=== PATIENT | female | born 1965 | race Caucasian/White ===

== ENCOUNTER 2016-10-12 13:26 | Emergency (ER) | payer MEDICAID | END 2016-10-12 14:14 | disposition home or self-care (01) | DX: S06.0X0A Concussion without loss of consciousness, initial encounter (principal); S00.33XA Contusion of nose, initial encounter; W22.8XXA Striking against or struck by other objects, initial encounter; Y92.018 Other place in single-family (private) house as the place of occurrence of the external cause; I11.0 Hypertensive heart disease with heart failure; I50.9 Heart failure, unspecified; I25.10 Atherosclerotic heart disease of native coronary artery without angina pectoris; M19.90 Unspecified osteoarthritis, unspecified site; F17.200 Nicotine dependence, unspecified, uncomplicated ==

== ENCOUNTER 2016-11-14 13:18 | Outpatient (CLI) | payer MEDICAID | END 2016-11-14 13:19 | disposition home or self-care (01) | DX: Z12.39 Encounter for other screening for malignant neoplasm of breast (principal) ==

== ENCOUNTER 2016-12-12 16:04 | Outpatient (CLI) | payer MEDICAID ==
--- NOTE | 2016-12-13 11:28 | XRAY Report ---
TWO-VIEW CHEST: 12/12/2016 CLINICAL INDICATION: Right-sided pain. COMPARISON: 12/22/2014 FINDINGS: Frontal and lateral views of the chest demonstrate a normal cardiac silhouette. The lungs are clear. No effusion or pneumothorax is present. IMPRESSION: NORMAL CHEST. JOB #: [id number] EXT JOB #:[id number]
--- NOTE | 2016-12-13 11:28 | XRAY Report ---
THREE-VIEW RIGHT ELBOW: 12/12/2016 CLINICAL INDICATION: Joint pain. FINDINGS: AP, lateral, oblique views of the right elbow demonstrate no evidence of fracture or dislo cation. The joint spaces are preserved. No effusion is present. IMPRESSION: NORMAL RIGHT ELBOW. 11:9:41 JOB #: [id number] EXT JOB #:[id number]
== END 2016-12-12 16:05 | disposition home or self-care (01) ==
LOC: DI.S 16:04
PROVIDERS: ATTEND Nurse Practitioner Family
DX: R07.81 Pleurodynia (principal)
CPT/HCPCS: 71020

== ENCOUNTER 2016-12-26 14:29 | Outpatient (CLI) | payer MEDICAID ==
[2016-12-26 18:25] LABS: CALCIUM 8.8 mg/dL (8.5-10.3); CREATININE 0.9 mg/dL (0.4-1.0); POTASSIUM 3.7 mmol/L (3.5-5.0)
== END 2016-12-26 14:30 | disposition home or self-care (01) ==
LOC: LAB.F 14:29
PROVIDERS: ATTEND Physician Assistant Medical
DX: I50.22 Chronic systolic (congestive) heart failure (principal)
CPT/HCPCS: 36415; 80048

== ENCOUNTER 2017-04-09 09:42 | Day surgery (SDC) | payer MEDICAID ==
[2017-04-09 10:06] LABS: HCG UR QUAL NEGATIVE
[2017-04-09] MEDS ORDERED: LACTATED RINGERS 1,000 ML IV ONE (10:24)
[2017-04-09] MEDS ORDERED: MIDAZOLAM 2 MG/2 ML VIAL IVP ONE (11:21)
[2017-04-09] MEDS ORDERED: fentaNYL 100 MCG/2 ML VIAL IVP ONE (11:21)
--- NOTE | 2017-04-09 11:47 | PROCEDURE REPORT ---
DATE OF PROCEDURE: 04/09/2017 00:00:00 PROCEDURES: EGD attempt. ENDOSCOPIST: Odell Stone MD. PRIMARY CARE: DANA Andino. INDICATION: Nausea, history of H pylori and bloating. The patient's previously scheduled upper endosc opy had been canceled. She now wanted to reschedule. She has not been seen in the office in some time . PREMEDICATIONS: Versed 2 mg. PROCEDURE IN DETAIL: After informed consent was obtained, the patient was placed in the supine positi on. She was given her first dose of sedation. She immediately became more tearful and wanted to cance l the procedure. The procedure was canceled. The endoscope was not inserted. FINDINGS: Canceled procedure after sedation secondary to patient preference. Given her history, she must have a return visit in the office before any procedures will be scheduled . I did look at her 2 previous abdominal flat plates, which show moderate to large stool burden on junior . On exam today, her abdomen is distended, but not tympanitic in the least consistent with stool/ab dominal adipose. It will be moreno to review all of these factors before scheduling any further procedu res. JOB #: [id number] [id number] JOB #:[id number]
[2017-04-09 11:50] VITALS: BP 108/61
== END 2017-04-09 09:43 | disposition home or self-care (01) ==
LOC: SDS 09:42
PROVIDERS: ATTEND Internal Medicine Gastroenterology
PROC: 0DJ08ZZ Inspection of Upper Intestinal Tract, Via Natural or Artificial Opening Endoscopic (ICD-10-PCS; principal; 2017-04-09 10:30)
DX: Z53.29 Procedure and treatment not carried out because of patient's decision for other reasons (principal); R14.0 Abdominal distension (gaseous)
CPT/HCPCS: 43235; 81025; J7120

== ENCOUNTER 2017-08-11 09:33 | Outpatient (CLI) | payer MEDICAID ==
--- NOTE | 2017-08-11 13:04 | XRAY Report ---
DATE OF SERVICE: 08/11/2017 UPPER GI WITH AIR: 08/11/2017 CLINICAL INDICATION: Nausea, bloating. FINDINGS: Single and double contrast upper GI was performed. The esophagus is normal in caliber. No esophageal stricturing, ulceration, or mass lesion is identified. A small amount of gastroesophageal reflux was visualized during the course of the study. The stomach demonstrates a normal fold pattern. No gastric ulceration or mass lesion is identified. The duodenal cap distends normally. The duodenal C loop appears unremarkable. Contrast passes freely into more distal small bowel loops. IMPRESSION: SMALL AMOUNT OF GASTROESOPHAGEAL REFLUX VISUALIZED, BUT NO ULCER OR MASS LESION IS IDENTIFIED. FLUOROSCOPY TIME: 2 MINUTES 15 SECONDS; 27 SPOT IMAGES OBTAINED. TD: 08/11/2017 14:04 BRADY
== END 2017-08-11 09:34 | disposition home or self-care (01) ==
LOC: DI 09:33
PROVIDERS: ATTEND Internal Medicine
DX: K21.9 Gastro-esophageal reflux disease without esophagitis (principal)
CPT/HCPCS: 74246

== ENCOUNTER 2017-10-01 08:00 | Outpatient (CLI) | payer MEDICAID ==
[2017-10-01 18:09] LABS: CALCIUM 8.9 mg/dL (8.5-10.3); CREATININE 1.1 mg/dL (0.4-1.0)
== END 2017-10-01 08:01 ==
LOC: LAB.F 08:00
DX: R60.9 Edema, unspecified (principal)
CPT/HCPCS: 36415; 80048

== ENCOUNTER 2017-12-11 11:59 | Emergency (ER) | payer MEDICAID ==
--- NOTE | 2017-12-11 13:04 | ED Physician Documentation ---
History of Present Illness - Stated complaint Stated Complaint: ABD PX - Chief complaint Chief Complaint: Abd Pain - History obtained from History obtained from: Patient - History of Present Illness Timing: Other (several years, worse over the past few months.) Pain level max: 1 Pain level now: 1 Improved by: nothing Worsened by: nothing - Additonal information Additional information: Patient is a 51-year-old female who presents to the emergency department complaining of increased abdominal swelling and bloating over the past few months. States that she has had ongoing stomach issues for "years". No cause found. States she had an endoscopy which was unable to be completed because she could not tolerate the procedure. She has another appointment with GI coming up in 2 weeks. 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 She has had some swelling in the legs, took Lasix and this improved. She states she has frequent nausea. Has been told that she has gallstones. Does not have vomiting. Intermittently has constipation and diarrhea. Review of Systems Ten Systems: 10 systems reviewed and negative Constitutional: denies: Fever, Chills Ears: denies: Ear pain Nose: denies: Rhinorrhea / runny nose, Congestion Throat: denies: Sore throat Cardiac: denies: Chest pain / pressure Respiratory: denies: Cough GI: denies: Hematemesis, Bloody / black stool : denies: Dysuria Skin: denies: Rash Musculoskeletal: denies: Neck pain, Back pain Neurologic: denies: Headache PD PAST MEDICAL HISTORY - Past Medical History Cardiovascular: Congestive heart failure, Coronary artery disease Respiratory: None Neuro: None Endocrine/Autoimmune: None GI: GERD 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 : None HEENT: None Psych: Depression, Anxiety Musculoskeletal: Osteoarthritis Derm: None - Past Surgical History Past Surgical History: Yes - Present Medications Home Medications: Ambulatory Orders Medication Instructions Recorded Confirmed Furosemide 25 mg PO DAILY 12/22/14 04/08/17 Lisinopril [Prinivil] 5 mg PO DAILY 12/22/14 04/08/17 Spironolactone [Aldactone] 25 mg PO DAILY 12/22/14 04/08/17 Metoprolol Succinate 25 mg PO BID 04/08/17 04/08/17 - Allergies Allergies/Adverse Reactions: Allergies Allergy/AdvReac Type Severity Reaction Status Date / Time No Known Drug Allergies Allergy Verified 09/13/15 19:28 - Social History Does the pt smoke?: Yes Smoking Status: Light tobacco smoker Does the pt drink ETOH?: Yes Does the pt have substance abuse?: No - Immunizations Immunizations are current?: No Immunizations: TDAP >10years/unknown - POLST Patient has POLST: No PD ED PE NORMAL - Vitals Vital signs reviewed: Yes - General General: Alert and oriented X 3, No acute distress - HEENT HEENT: Moist mucous membranes - Neck Neck: Supple, no meningeal sign - Cardiac Cardiac: RRR, Strong equal pulses - Respiratory Respiratory: No respiratory distress, Clear bilaterally - Abdomen Abdomen: Soft, Non tender, Other (mild distention. no peritoneal signs. ) - Derm Derm: Warm and dry - Extremities Extremities: Other (1+ BLE edema) - Neuro Neuro: Alert and oriented X 3 - Psych Psych: Normal mood, Normal affect Results - Vitals Vitals: Vital Signs - 24 hr 12/11/17 12/11/17 12:08 15:13 Temperature 36.2 C L Heart Rate 81 79 Respiratory 16 18 Rate Blood Pressure 141/87 H 130/92 H O2 Saturation 97 100 Oxygen O2 Source Room air - Labs Labs: Laboratory Tests 12/11/17 12/11/17 12/11/17 13:23 13:23 13:23 WBC 6.4 RBC 5.08 Hgb 14.8 Hct 44.3 MCV 87.3 MCH 29.2 MCHC 33.4 RDW 14.0 Plt Count 256 MPV 7.7 L Neut # 3.4 Lymph # 1.9 [place] # 0.7 Eos # 0.3 Baso # 0.0 Absolute Nucleated RBC 0.00 Nucleated RBC % 0.0 Sodium 138 Potassium 3.7 Chloride 103 Carbon Dioxide 29 Anion Gap 6.0 BUN 20 Creatinine 1.1 H Estimated GFR (MDRD) 52 L Glucose 81 Calcium 9.2 Total Bilirubin 0.6 AST 43 H ALT 37 Alkaline Phosphatase 83 B-Natriuretic Peptide 15 Total Protein 7.5 Albumin 3.4 Globulin 4.1 Albumin/Globulin Ratio 0.8 L Lipase 29 Urine Color Urine Clarity Urine pH Ur Specific [place] Urine Protein Urine Glucose (UA) Urine Ketones Urine Occult Blood Urine Nitrite Urine Bilirubin Urine Urobilinogen Ur Leukocyte Esterase Urine RBC Urine WBC Ur Squamous Epith Cells Urine Bacteria Ur Microscopic Review Urine Culture Comments 12/11/17 13:35 WBC RBC Hgb Hct MCV MCH MCHC RDW Plt Count MPV Neut # Lymph # [place] # Eos # Baso # Absolute Nucleated RBC Nucleated RBC % Sodium Potassium Chloride Carbon Dioxide Anion Gap BUN Creatinine Estimated GFR (MDRD) Glucose Calcium Total Bilirubin AST ALT Alkaline Phosphatase B-Natriuretic Peptide Total Protein Albumin Globulin Albumin/Globulin Ratio Lipase Urine Color YELLOW Urine Clarity CLEAR Urine pH 5.5 Ur Specific [place] >=1.030 H Urine Protein NEGATIVE Urine Glucose (UA) NEGATIVE Urine Ketones NEGATIVE Urine Occult Blood NEGATIVE Urine Nitrite NEGATIVE Urine Bilirubin NEGATIVE Urine Urobilinogen 0.2 (NORMAL) Ur Leukocyte Esterase SMALL H Urine RBC 0-5 Urine WBC 4-5 Ur Squamous Epith Cells FEW Squamous Urine Bacteria Few Ur Microscopic Review INDICATED Urine Culture Comments INDICATED - Rads (name of study) CT abd/pelvis Radiology: Prelim report reviewed, EMP read contemporaneously, See rad report ( Gallstones versus sludge without findings of acute cholecystitis. 2. No localizing or focal inflammatory process in the abdomen or pelvis. 3. Small 0.7 cm low-density liver lesion is too small to characterize but as an isolated finding of doubtful acute significance ) PD MEDICAL DECISION MAKING - ED course Complexity details: reviewed old records (prior 2015), reviewed results, re- evaluated patient, considered differential, d/w patient ED course: Patient is a 51-year-old female who presents to the emergency department with abdominal bloating for the past several years, worse over the past few months. Is scheduled to see GI again. Has been evaluated by GI several times. Also has been evaluated by cardiology. Does not appear significantly fluid overloaded today. BNP is normal. No acute laboratory issues are she is on CT scan to explain her symptoms. Will have her follow-up with her doctor for further care. She does have a gallstone which is chronic and does not appear infected at this time. No abdominal tenderness to suggest cholecystitis. Patient counseled regarding signs and symptoms for which I believe and urgent re -evaluation would be necessary. Patient with good understanding of and agreement to plan and is comfortable going home at this time This document was made in part using voice recognition software. While efforts are made to proofread this document, sound alike and grammatical errors may occur. Departure - Departure Disposition: 01 Home, Self Care Clinical Impression: Abdominal distention Gallstone Qualifiers: Cholecystitis presence: without cholecystitis Biliary obstruction: without biliary obstruction Qualified Code(s): K80.20 - Calculus of gallbladder without cholecystitis without obstruction Condition: Good Instructions: ED Gas Bloating Follow-Up: Myra Carranza ARNP [Primary Care Provider] - Within 1 week Comments: Your tests are normal today. There are no acute findings on your labs or CT scan today. Follow up with cardiology and gastroenterology as scheduled. Return if you worsen. Discharge Date/Time: 12/11/17 15:22
[2017-12-11 13:39] LABS: BASOPHILS % (AUTO) 0.5 %; EOSINOPHILS # (AUTO) 0.3 10^3/uL (0.0-0.7); EOSINOPHILS % (AUTO) 4.5 %; HGB - HEMOGLOBIN 14.8 g/dL (12.0-16.0); LYMPHOCYTES # (AUTO) 1.9 10^3/uL (1.5-3.5); LYMPHOCYTES % (AUTO) 30.7 %; MEAN CORPUSCULAR HEMOGLOBIN 29.2 pg (27.0-31.0); MEAN CORPUSCULAR HGB CONC 33.4 g/dL (32.0-36.0); MEAN CORPUSCULAR VOLUME 87.3 fL (81.0-99.0); MEAN PLATELET VOLUME 7.7 fL (7.9-10.8); MONOCYTES # (AUTO) 0.7 10^3/uL (0.0-1.0); MONOCYTES % (AUTO) 11.6 %; NEUTROPHILS # (AUTO) 3.4 10^3/uL (1.5-6.6); NEUTROPHILS % (AUTO) 52.7 %; PLT - PLATELET COUNT 256 10^3/uL (130-450); RED BLOOD COUNT 5.08 10^6/uL (4.20-5.40); WHITE BLOOD COUNT 6.4 x10^3/uL (4.8-10.8)
[2017-12-11 13:40] LABS: BILIRUBIN,URINE NEGATIVE (NEGATIVE); GLUCOSE, URINE (UA) NEGATIVE (NEGATIVE); KETONES,URINE (UA) NEGATIVE (NEGATIVE); LEUKOCYTE ESTERASE, URINE SMALL (NEGATIVE); NITRITE,URINE NEGATIVE (NEGATIVE); OCCULT BLOOD,URINE NEGATIVE (NEGATIVE); PH,URINE 5.5 PH (5.0-7.5); PROTEIN,URINE NEGATIVE (NEGATIVE); UROBILINOGEN,URINE 0.2 (NORMAL) E.U./dL (NORMAL)
[2017-12-11 13:42] LABS: CLARITY,URINE CLEAR (CLEAR)
[2017-12-11 13:48] LABS: BACTERIA,URINE Few /HPF (None Seen); RBC,URINE 0-5 /HPF (0-5); SQUAMOUS EPITHELIAL CELL,UR FEW Squamous (<= Few)
[2017-12-11] MEDS ORDERED: IOPAMIDOL-300 50 ML VIAL ONE (13:52)
[2017-12-11 13:54] LABS: ALBUMIN 3.4 g/dL (3.2-5.5); ALBUMIN/GLOBULIN RATIO 0.8 (1.0-2.2); BILIRUBIN,TOTAL 0.6 mg/dL (0.2-1.0); CALCIUM 9.2 mg/dL (8.5-10.3); CREATININE 1.1 mg/dL (0.4-1.0); TOTAL PROTEIN 7.5 g/dL (6.7-8.2)
[2017-12-11] MEDS ORDERED: IOPAMIDOL-300 100 ML VIAL ONE (14:35)
[2017-12-11] MEDS ORDERED: IOPAMIDOL-300 100 ML VIAL IVP ONE (15:02)
[2017-12-11] MEDS ORDERED: IOPAMIDOL-300 50 ML VIAL PO ONE (15:02)
[2017-12-11 15:14] VITALS: BP 130/92
--- NOTE | 2017-12-11 15:20 | CT Report ---
EXAM: CT ABDOMEN AND PELVIS EXAM DATE: 12/11/2017 03:02 PM. CLINICAL HISTORY: Diffuse abd discomfort and swelling. COMPARISONS: None. TECHNIQUE: Routine helical CT imaging was performed through the abdomen and pelvis. IV contrast: ISOV UE 300 100mL. Enteric contrast: Yes. Reconstructions: Coronal and sagittal. In accordance with CT protocol optimization, one or more of the following dose reduction techniques w ere utilized for this exam: automated exposure control, adjustment of mA and/or KV based on patient s ize, or use of iterative reconstructive technique. FINDINGS: Lung Bases: Unremarkable. Liver: The liver size is normal. There is a 0.7 cm low-density lesion in the dome of the left lobe of the liver which is too small to characterize. Gallbladder/Bile Ducts: There is a 1.7 cm gallstone or sludge ball within the gallbladder. No CT evid ence of acute cholecystitis. Spleen: Normal. Pancreas: Normal. Adrenal Glands: Normal. Kidneys: Normal. No masses or hydronephrosis. Peritoneal Cavity/Bowel: The stomach and the small bowel are opacified with contrast. No dilated arsalan l or evidence of small bowel obstruction. There is scattered stool in the colon. No focal colonic wal l thickening. No abnormal fluid or gas collection. The appendix is well visualized and normal. Pelvic Organs: Uterus is anteverted. Urinary bladder appears unremarkable. Vasculature: No aneurysms or other significant abnormality. Bones: No significant abnormality. Other: None. IMPRESSION: 1. Gallstones versus sludge without findings of acute cholecystitis. 2. No localizing or focal inflammatory process in the abdomen or pelvis. 3. Small 0.7 cm low-density liver lesion is too small to characterize but as an isolated finding of d oubtful acute significance [facility] Referring Provider Line: [phone] SITE ID: [id number]
== END 2017-12-11 15:22 | disposition home or self-care (01) ==
LOC: ED 11:59
DX: R14.0 Abdominal distension (gaseous) (principal); K80.20 Calculus of gallbladder without cholecystitis without obstruction; I50.9 Heart failure, unspecified; I25.10 Atherosclerotic heart disease of native coronary artery without angina pectoris; K21.9 Gastro-esophageal reflux disease without esophagitis; M19.90 Unspecified osteoarthritis, unspecified site; F17.200 Nicotine dependence, unspecified, uncomplicated
CPT/HCPCS: 36415; 74177; 80053; 81001; 83690; 83880; 85025; 87086; 99283; Q9967; 81003

== ENCOUNTER 2018-10-13 08:30 | Outpatient (CLI) | payer MEDICAID ==
[2018-10-13 10:47] LABS: BASOPHILS % (AUTO) 0.7 %; EOSINOPHILS # (AUTO) 0.1 10^3/uL (0.0-0.7); EOSINOPHILS % (AUTO) 2.7 %; HGB - HEMOGLOBIN 14.3 g/dL (12.0-16.0); LYMPHOCYTES # (AUTO) 1.5 10^3/uL (1.5-3.5); LYMPHOCYTES % (AUTO) 28.9 %; MEAN CORPUSCULAR HEMOGLOBIN 29.1 pg (27.0-31.0); MEAN CORPUSCULAR HGB CONC 33.3 g/dL (32.0-36.0); MEAN CORPUSCULAR VOLUME 87.5 fL (81.0-99.0); MEAN PLATELET VOLUME 8.1 fL (7.9-10.8); MONOCYTES # (AUTO) 0.5 10^3/uL (0.0-1.0); MONOCYTES % (AUTO) 9.2 %; NEUTROPHILS % (AUTO) 58.5 %; PLT - PLATELET COUNT 248 10^3/uL (130-450); RED BLOOD COUNT 4.93 10^6/uL (4.20-5.40); RED CELL DISTRIBUTION WIDTH 13.7 % (12.0-15.0); WHITE BLOOD COUNT 5.1 x10^3/uL (4.8-10.8)
[2018-10-13 11:12] LABS: ALBUMIN 3.5 g/dL (3.2-5.5); ALBUMIN/GLOBULIN RATIO 0.9 (1.0-2.2); ALKALINE PHOSPHATASE 77 IU/L (42-121); ALT ALANINE AMINOTRANSFERASE 27 IU/L (10-60); AST ASPARTATE AMINOTRANSFERASE 32 IU/L (10-42); BILIRUBIN,TOTAL 0.7 mg/dL (0.2-1.0); BUN - BLOOD UREA NITROGEN 19 mg/dL (6-20); CALCIUM 8.7 mg/dL (8.5-10.3); CARBON DIOXIDE - CO2 24 mmol/L (21-32); CHLORIDE 104 mmol/L (101-111); CHOLESTEROL 232 mg/dL; CREATININE 0.8 mg/dL (0.4-1.0); GFR - MDRD 75 (>89); GLUCOSE 104 mg/dL (70-100); HDL CHOLESTEROL 77 mg/dL; LDL CHOLESTEROL,CALCULATED 138 mg/dL; LDL/HDL RATIO 1.8 (<4.4); SODIUM 136 mmol/L (135-145); TOTAL PROTEIN 7.4 g/dL (6.7-8.2); VLDL CHOLESTEROL 17 mg/dL
== END 2018-10-13 08:31 | disposition home or self-care (01) ==
LOC: LAB.F 08:30
PROVIDERS: ATTEND Nurse Practitioner Family
DX: I10 Essential (primary) hypertension (principal); Z13.220 Encounter for screening for lipoid disorders
CPT/HCPCS: 36415; 80053; 80061; 83721; 84443; 85025

== ENCOUNTER 2018-10-22 01:51 | Emergency (ER) | payer MEDICAID ==
[2018-10-22 02:12] VITALS: BP 127/90
[2018-10-22] MEDS ORDERED: ASPIRIN CHEW 81 MG TABLET PO STA (02:12)
--- NOTE | 2018-10-22 02:20 | ED Physician Documentation ---
History of Present Illness - Stated complaint Stated Complaint: CP - Chief complaint Chief Complaint: General - History obtained from History obtained from: Patient - History of Present Illness Timing: Yesterday Pain level max: 6 Pain level now: 4 - Additonal information Additional information: 52-year-old female with right-sided chest pain, described as sharp, worse with movement, palpation and deep breathing. Started after she fell and landed on the arm of a chair in the right upper chest wall, this is where the pain is. Has not taken anything for it. 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 : None HEENT: None Psych: None Musculoskeletal: None Derm: None - Past Surgical History Past Surgical History: Yes /DESTATICIZER FEEDER: LEEP (Cervical surgery) - Present Medications Home Medications: Ambulatory Orders Medication Instructions Recorded Confirmed Furosemide 25 mg PO DAILY 12/22/14 01/20/18 Lisinopril [Prinivil] 5 mg PO DAILY 12/22/14 01/20/18 Spironolactone [Aldactone] 25 mg PO DAILY 12/22/14 01/20/18 Metoprolol Succinate 25 mg PO BID 04/08/17 01/20/18 - Allergies Allergies/Adverse Reactions: Allergies Allergy/AdvReac Type Severity Reaction Status Date / Time No Known Drug Allergies Allergy Verified 10/22/18 02:01 - Social History Does the pt smoke?: Yes Smoking Status: Current every day smoker Does the pt drink ETOH?: Yes Does the pt have substance abuse?: No - Immunizations Immunizations are current?: No Immunizations: TDAP >10years/unknown - POLST Patient has POLST: No PD ED PE NORMAL - Vitals Vital signs reviewed: Yes - General General: Alert and oriented X 3, No acute distress, Well developed/nourished - HEENT HEENT: PERRL, Moist mucous membranes - Neck Neck: Supple, no meningeal sign - Cardiac Cardiac: RRR, No murmur, Strong equal pulses - Respiratory Respiratory: No respiratory distress, Clear bilaterally - Abdomen Abdomen: Soft, Non tender, Non distended - Derm Derm: Warm and dry - Extremities Extremities: No edema, No calf tenderness / cord - Neuro Neuro: Alert and oriented X 3 - Psych Psych: Normal mood, Normal affect - Free text exam Free text exam: Tender to palpation over the right upper chest wall. Reproduces her pain. No crepitus. No ecchymosis. Results - Vitals Vitals: Vital Signs - 24 hr 10/22/18 10/22/18 01:55 02:11 Temperature 36.7 C Heart Rate 98 93 Respiratory 19 20 Rate Blood Pressure 145/65 H 127/90 H O2 Saturation 100 98 Oxygen O2 Source Room air - EKG (time done) 0201 Rate: Rate (enter#) (94) Rhythm: NSR, Other (52-year-old female with right-sided chest pain, described as sharp, worse with movement, palpation and deep breathing. Started after she fell and landed on the arm of a chair in the right upper chest wall, this is where the pain is. Has not taken anything for it. Nothing makes it better) [place]: Normal Intervals: Normal NE QRS: Normal Ischemia: Non specific changes - Labs Labs: Laboratory Tests 10/22/18 10/22/18 10/22/18 02:20 02:20 02:20 WBC 6.4 RBC 4.61 Hgb 13.4 Hct 40.1 MCV 86.9 MCH 29.0 MCHC 33.4 RDW 13.8 Plt Count 241 MPV 7.6 L Neut # (Auto) 3.5 Lymph # (Auto) 1.9 [place] # (Auto) 0.7 Eos # (Auto) 0.2 Baso # (Auto) 0.0 Absolute Nucleated RBC 0.00 Nucleated RBC % 0.0 Sodium 136 Potassium 3.9 Chloride 105 Carbon Dioxide 25 Anion Gap 6.0 BUN 24 H Creatinine 0.9 Estimated GFR (MDRD) 65 L Glucose 131 H Calcium 8.6 Total Bilirubin 0.5 AST 32 ALT 28 Alkaline Phosphatase 85 Troponin I < 0.04 Total Protein 7.1 Albumin 3.3 Globulin 3.8 Albumin/Globulin Ratio 0.9 L Lipase 34 - Rads (name of study) Chest x-ray Radiology: Prelim report reviewed, EMP read contemporaneously, See rad report (No acute abnormality) PD MEDICAL DECISION MAKING - ED course Complexity details: reviewed results, re-evaluated patient, considered differential (No ST elevation MA, no aortic dissection, no PE, no tension pneumothorax, no aortic aneurysm), d/w patient ED course: 52-year-old female presents to the emergency department with chest wall pain after a fall and landing on the couch. No pneumothorax or hemothorax. Negative cardiac enzymes. Nonischemic EKG. Negative chest x-ray. Will continue Motrin and Tylenol as needed for symptoms at home. Patient counseled regarding signs and symptoms for which I believe and urgent re-evaluation would be necessary. Patient with good understanding of and agreement to plan and is comfortable going home at this time This document was made in part using voice recognition software. While efforts are made to proofread this document, sound alike and grammatical errors may occur. Departure - Departure Disposition: 01 Home, Self Care Clinical Impression: Contusion, chest wall Qualifiers: Encounter type: initial encounter Laterality: right Qualified Code(s): S20.211A - Contusion of right front wall of thorax, initial encounter Condition: Good Instructions: ED Contusion Chest Wall Follow-Up: Myra Carranza ARNP [Primary Care Provider] - Within 3 Days Comments: You can use Motrin or Tylenol as needed for pain at home. Return if you worsen. Follow-up with your doctor for further care.
[2018-10-22 02:33] LABS: BASOPHILS % (AUTO) 0.6 %; EOSINOPHILS # (AUTO) 0.2 10^3/uL (0.0-0.7); EOSINOPHILS % (AUTO) 3.7 %; HGB - HEMOGLOBIN 13.4 g/dL (12.0-16.0); LYMPHOCYTES # (AUTO) 1.9 10^3/uL (1.5-3.5); LYMPHOCYTES % (AUTO) 29.9 %; MEAN CORPUSCULAR HGB CONC 33.4 g/dL (32.0-36.0); MEAN CORPUSCULAR VOLUME 86.9 fL (81.0-99.0); MEAN PLATELET VOLUME 7.6 fL (7.9-10.8); MONOCYTES # (AUTO) 0.7 10^3/uL (0.0-1.0); MONOCYTES % (AUTO) 10.6 %; NEUTROPHILS # (AUTO) 3.5 10^3/uL (1.5-6.6); NEUTROPHILS % (AUTO) 55.2 %; PLT - PLATELET COUNT 241 10^3/uL (130-450); RED BLOOD COUNT 4.61 10^6/uL (4.20-5.40); RED CELL DISTRIBUTION WIDTH 13.8 % (12.0-15.0); WHITE BLOOD COUNT 6.4 x10^3/uL (4.8-10.8)
--- NOTE | 2018-10-22 02:36 | XRAY Report ---
Reason: Chest Pain Procedure Date: 10/22/2018 Accession Number: [id number] / [id number] Procedure: XR - Chest 1 View X-Ray CPT Code: 25039 FULL RESULT: EXAM: CHEST RADIOGRAPHY EXAM DATE: 10/22/2018 02:22 AM. CLINICAL HISTORY: Chest Pain. COMPARISON: CHEST 2 VIEW PA/LAT 12/12/2016 4:14 PM. TECHNIQUE: 1 view. FINDINGS: Lungs/Pleura: No focal opacities evident. No pleural effusion. No pneumothorax. Mediastinum: Within exam limitations, the cardiomediastinal contour is normal. Other: None. IMPRESSION: Stable negative single view chest. [facility]
[2018-10-22 02:43] LABS: ALBUMIN 3.3 g/dL (3.2-5.5); ALBUMIN/GLOBULIN RATIO 0.9 (1.0-2.2); BILIRUBIN,TOTAL 0.5 mg/dL (0.2-1.0); CALCIUM 8.6 mg/dL (8.5-10.3); CREATININE 0.9 mg/dL (0.4-1.0); TOTAL PROTEIN 7.1 g/dL (6.7-8.2)
== END 2018-10-22 03:02 | disposition home or self-care (01) ==
LOC: ED 01:51
DX: S20.211A Contusion of right front wall of thorax, initial encounter (principal); W18.30XA Fall on same level, unspecified, initial encounter; W22.03XA Walked into furniture, initial encounter; F17.200 Nicotine dependence, unspecified, uncomplicated
CPT/HCPCS: 36415; 71045; 80053; 83690; 84484; 85025; 93005; 99283; 99284; A9270

== ENCOUNTER 2018-12-30 10:18 | Outpatient (CLI) | payer MEDICAID | END 2018-12-30 10:19 | disposition home or self-care (01) | LOC: LAB.F 10:18 | PROVIDERS: ATTEND Internal Medicine | DX: R11.0 Nausea (principal) | CPT/HCPCS: 36415; 81599; 82784; 83516 ==

== ENCOUNTER 2019-04-01 14:59 | Outpatient (CLI) | payer MEDICAID | END 2019-04-01 15:00 | disposition home or self-care (01) | LOC: LAB.S 14:59 | PROVIDERS: ATTEND Physician Assistant Medical | DX: I50.22 Chronic systolic (congestive) heart failure (principal) | CPT/HCPCS: 36415; 80048 ==

== ENCOUNTER 2019-07-25 12:12 | Emergency (ER) | payer MEDICAID ==
[2019-07-25 12:53] VITALS: BP 146/85
--- NOTE | 2019-07-25 13:09 | ED Physician Documentation ---
PD HPI CHEST PAIN - Stated complaint Stated Complaint: SOA/BACK PX - Chief complaint Chief Complaint: Cardiac - History obtained from History obtained from: Patient - History of Present Illness Timing - onset: Other (5 days ago she fell out of a truck. She did not hit her back but she kind of bent over too far in the fall. Starting yesterday she is had a back pain, its near the right side of the posterior bra line and its worse if she bends over or lifts up her head. She is not short of breath, but a friend of hers told her that she looked short of breath. She denies pedal edema or calf pain. She has history of CHF for reasons that are not completely clear to me. She denies any history of coronary disease. 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 : None HEENT: None Psych: Anxiety Musculoskeletal: None Derm: None - Past Surgical History Past Surgical History: 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: LEEP (Cervical surgery) - Present Medications Home Medications: Ambulatory Orders Medication Instructions Recorded Confirmed Furosemide 25 mg PO DAILY 12/22/14 01/20/18 Lisinopril [Prinivil] 5 mg PO DAILY 12/22/14 01/20/18 Spironolactone [Aldactone] 25 mg PO DAILY 12/22/14 01/20/18 Metoprolol Succinate 25 mg PO BID 04/08/17 01/20/18 - Allergies Allergies/Adverse Reactions: Allergies Allergy/AdvReac Type Severity Reaction Status Date / Time No Known Drug Allergies Allergy Verified 07/25/19 12:18 - Social History Does the pt smoke?: Yes Smoking Status: Current every day smoker Does the pt drink ETOH?: Yes Does the pt have substance abuse?: No - Immunizations Immunizations are current?: No Immunizations: TDAP >10years/unknown - POLST Patient has POLST: No PD ED PE NORMAL - Vitals Vital signs reviewed: Yes - General General: Alert and oriented X 3, No acute distress - HEENT HEENT: PERRL, EOMI - Neck Neck: Supple, no meningeal sign, No bony TTP - Cardiac Cardiac: RRR, No murmur - Respiratory Respiratory: No respiratory distress, Clear bilaterally - Abdomen Abdomen: Non tender - Back Back: No CVA TTP, No spinal TTP - Extremities Extremities: No edema, No calf tenderness / cord - Neuro Neuro: Alert and oriented X 3, Normal speech Results - Vitals Vitals: Vital Signs - 24 hr 07/25/19 07/25/19 12:18 12:49 Temperature 36.8 C Heart Rate 92 Respiratory 14 Rate Blood Pressure 147/90 H Blood Pressure 146/85 H [Right] O2 Saturation 94 Oxygen O2 Source Room air - EKG (time done) 1224 Rate: Rate (enter#) (93) Rhythm: NSR (with pvc), LAE [place]: Normal Intervals: Normal [place] Ischemia: Non specific changes Computer interpretation: Agree with computer 1326 Rate: Rate (enter#) (87) Rhythm: NSR [place]: Normal Intervals: Normal [place], Prolonged QT Ischemia: Non specific changes Computer interpretation: Agree with computer - Labs Labs: Laboratory Tests 07/25/19 07/25/19 07/25/19 13:10 13:10 13:10 WBC 6.6 RBC 4.91 Hgb 14.3 Hct 43.9 MCV 89.4 MCH 29.1 MCHC 32.6 RDW 13.4 Plt Count 234 MPV 9.5 Neut # (Auto) 3.8 Lymph # (Auto) 2.0 [place] # (Auto) 0.7 Eos # (Auto) 0.2 Baso # (Auto) 0.0 Absolute Nucleated RBC 0.00 Nucleated RBC % 0.0 D-Dimer Sodium 139 Potassium 3.8 Chloride 103 Carbon Dioxide 26 Anion Gap 10.0 BUN 24 H Creatinine 1.1 H Estimated GFR (MDRD) 52 L Glucose 137 H Calcium 9.2 Total Bilirubin 0.5 AST 31 ALT 26 Alkaline Phosphatase 74 Troponin I High Sens 7.5 Total Protein 7.3 Albumin 3.5 Globulin 3.8 Albumin/Globulin Ratio 0.9 L Lipase 42 07/25/19 13:10 WBC RBC Hgb Hct MCV MCH MCHC RDW Plt Count MPV Neut # (Auto) Lymph # (Auto) [place] # (Auto) Eos # (Auto) Baso # (Auto) Absolute Nucleated RBC Nucleated RBC % D-Dimer < 200.0 L Sodium Potassium Chloride Carbon Dioxide Anion Gap BUN Creatinine Estimated GFR (MDRD) Glucose Calcium Total Bilirubin AST ALT Alkaline Phosphatase Troponin I High Sens Total Protein Albumin Globulin Albumin/Globulin Ratio Lipase PD MEDICAL DECISION MAKING - ED course ED course: 53-year-old woman with right upper back pain after falling off a truck, the pattern seems muscular. A search for more serious etiology such as anginal equivalent, PE was negative. She does have a history of gallstones and this could be causative but she has no transaminitis or evidence of obstruction and no right upper quadrant tenderness. She declined medications. Departure - Departure Disposition: 01 Home, Self Care Clinical Impression: Back strain Qualifiers: Encounter type: initial encounter Qualified Code(s): S39.012A - Strain of muscle, fascia and tendon of lower back, initial encounter Back pain Qualifiers: Back pain location: thoracic back pain Chronicity: acute Back pain laterality: right Qualified Code(s): M54.6 - Pain in thoracic spine Condition: Good Record reviewed to determine appropriate education?: Yes Instructions: ED Chest Pain NonCardiac, ED Spasm Back No Trauma Follow-Up: Nicola Tate MD [Provider Admit Priv/Credential] - Comments: Tylenol as needed for pain, return for new or worsening symptoms. As discussed I do not think this is related to your gallstones, but it is not unreasonable to follow-up with a general surgeon for evaluation and a number is on the form to make an appointment.
[2019-07-25 13:22] LABS: BASOPHILS % (AUTO) 0.5 %; EOSINOPHILS # (AUTO) 0.2 10^3/uL (0.0-0.7); EOSINOPHILS % (AUTO) 2.9 %; HGB - HEMOGLOBIN 14.3 g/dL (12.0-16.0); LYMPHOCYTES % (AUTO) 29.5 %; MEAN CORPUSCULAR HEMOGLOBIN 29.1 pg (27.0-31.0); MEAN CORPUSCULAR HGB CONC 32.6 g/dL (32.0-36.0); MEAN CORPUSCULAR VOLUME 89.4 fL (81.0-99.0); MEAN PLATELET VOLUME 9.5 fL (7.9-10.8); MONOCYTES # (AUTO) 0.7 10^3/uL (0.0-1.0); MONOCYTES % (AUTO) 10.2 %; NEUTROPHILS # (AUTO) 3.8 10^3/uL (1.5-6.6); NEUTROPHILS % (AUTO) 56.6 %; PLT - PLATELET COUNT 234 10^3/uL (130-450); RED BLOOD COUNT 4.91 10^6/uL (4.20-5.40); RED CELL DISTRIBUTION WIDTH 13.4 % (12.0-15.0); WHITE BLOOD COUNT 6.6 x10^3/uL (4.8-10.8)
[2019-07-25 13:33] LABS: ALBUMIN 3.5 g/dL (3.2-5.5); ALBUMIN/GLOBULIN RATIO 0.9 (1.0-2.2); BILIRUBIN,TOTAL 0.5 mg/dL (0.2-1.0); CALCIUM 9.2 mg/dL (8.5-10.3); CREATININE 1.1 mg/dL (0.4-1.0); TOTAL PROTEIN 7.3 g/dL (6.7-8.2)
--- NOTE | 2019-07-25 13:59 | XRAY Report ---
Reason: right upper back pain Procedure Date: 07/25/2019 Accession Number: [id number] / [id number] Procedure: XR - Chest 2 View X-Ray CPT Code: 43051 Final Report FULL RESULT: EXAM: CHEST RADIOGRAPHY EXAM DATE: 07/25/2019 01:43 PM. CLINICAL HISTORY: Right upper back pain. COMPARISON: CHEST 1 VIEW 10/22/2018 2:10 AM. TECHNIQUE: 2 views. FINDINGS: Lungs/Pleura: No focal opacities evident. No pleural effusion. No pneumothorax. Normal volumes. Mediastinum: Heart and mediastinal contours are unremarkable. Other: No acute skeletal abnormalities are evident. IMPRESSION: No acute cardiopulmonary abnormality. RADIA
== END 2019-07-25 14:19 | disposition home or self-care (01) ==
LOC: ED 12:12
DX: S29.012A Strain of muscle and tendon of back wall of thorax, initial encounter (principal); W17.89XA Other fall from one level to another, initial encounter; I49.3 Ventricular premature depolarization; I45.81 Long QT syndrome; I50.9 Heart failure, unspecified; F17.200 Nicotine dependence, unspecified, uncomplicated
CPT/HCPCS: 36415; 71046; 80053; 83690; 84484; 85025; 85379; 93005; 99282; 99284

== ENCOUNTER 2020-05-22 19:41 | Emergency (ER) | payer MEDICAID ==
[2020-05-22] MEDS ORDERED: ACETAMINOPHEN 325 MG TABLET PO STA (20:49)
--- NOTE | 2020-05-22 20:59 | ED Physician Documentation ---
History of Present Illness - Stated complaint Stated Complaint: RT FLANK PX - Chief complaint Chief Complaint: General - History obtained from History obtained from: Patient - History of Present Illness Timing: Yesterday Pain level max: 6 Pain level now: 5 - Additonal information Additional information: 54-year-old female states she was bending over a headboard making a bed, since that time has had right anterior rib pain. This started yesterday. Worse with movement and palpation, better with rest. Has not taken anything for the pain. No difficulty breathing. No nausea or vomiting. No abdominal pain. No diarrhea. No constipation. 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) - Present Medications Home Medications: Ambulatory Orders Medication Instructions Recorded Confirmed Furosemide 25 mg PO DAILY 12/22/14 01/20/18 Lisinopril [Prinivil] 5 mg PO DAILY 12/22/14 01/20/18 Spironolactone [Aldactone] 25 mg PO DAILY 12/22/14 01/20/18 Metoprolol Succinate 25 mg PO BID 04/08/17 01/20/18 - Allergies Allergies/Adverse Reactions: Allergies Allergy/AdvReac Type Severity Reaction Status Date / Time No Known Drug Allergies Allergy Verified 05/22/20 19:43 - Social History Does the pt smoke?: Yes Smoking Status: Current every day smoker Does the pt drink ETOH?: Yes Does the pt have substance abuse?: No - Immunizations Immunizations are current?: No Immunizations: TDAP >10years/unknown - POLST Patient has POLST: No PD ED PE NORMAL - Vitals Vital signs reviewed: Yes - General General: Alert and oriented X 3, No acute distress - HEENT HEENT: Moist mucous membranes - Neck Neck: Supple, no meningeal sign - Cardiac Cardiac: RRR - Respiratory Respiratory: No respiratory distress, Clear bilaterally - Abdomen Abdomen: Soft, Non tender, Non distended, Other (No tenderness over the liver or gallbladder. She is tender to palpation right anterior ribs, approximately 10 through 12. No crepitus. No ecchymosis.) - Derm Derm: Warm and dry - Neuro Neuro: Alert and oriented X 3 - Psych Psych: Normal mood, Normal affect Results - Vitals Vitals: Vital Signs - 24 hr 05/22/20 05/22/20 05/22/20 19:44 19:54 21:41 Temperature 37.0 C 37 C 37 C Heart Rate 98 98 89 Respiratory 16 16 16 Rate Blood Pressure 136/84 H 136/84 H 132/78 H O2 Saturation 98 98 100 Oxygen O2 Source Room air - Rads (name of study) Right rib x-ray Radiology: Prelim report reviewed, EMP read contemporaneously, See rad report PD MEDICAL DECISION MAKING - ED course Complexity details: reviewed results, re-evaluated patient, considered differential, d/w patient ED course: No acute findings on x-ray. No pneumothorax or hemothorax. Pain well controlled with Tylenol. We will continue supportive care and have her follow- up with her doctor. Patient counseled regarding signs and symptoms for which I believe and urgent re-evaluation would be necessary. Patient with good understanding of and agreement to plan and is comfortable going home at this time This document was made in part using voice recognition software. While efforts are made to proofread this document, sound alike and grammatical errors may occur. Departure - Departure Disposition: 01 Home, Self Care Clinical Impression: Contusion of rib on right side Qualifiers: Encounter type: initial encounter Qualified Code(s): S20.211A - Contusion of right front wall of thorax, initial encounter Condition: Good Instructions: ED Contusion Chest Wall, ED Contusion Rib Follow-Up: your,doctor in 1 week [Other] Comments: Your x-rays do not show any acute abnormality today. Follow-up with your doctor in 1 week for repeat evaluation. You can use Motrin or Tylenol as needed for pain. Discharge Date/Time: 05/22/20 21:42
--- NOTE | 2020-05-22 21:32 | XRAY Report ---
PROCEDURE: Ribs w/PA Chest RT INDICATIONS: R anterior 10-12 rib pain TECHNIQUE: 2 views of the right ribs were acquired, along with a single view chest. COMPARISON: None FINDINGS: Surgical changes and devices: None. Bones and chest wall: No fractures or dislocations. No suspicious bony lesions. Overlying soft tis sues appear unremarkable. Lungs and pleura: No pleural effusions or pneumothorax. Lungs appear clear. Mediastinum: Mediastinal contours appear normal. Heart size is normal. IMPRESSION: No visible rib fractures or radiographic evidence of underlying chest trauma. Reviewed by: Daisy Lopez MD on 05/22/2020 9:30 PM PDT Approved by: Daisy Lopez MD on 05/22/2020 9:30 PM PDT Station ID: [id number]
[2020-05-22 21:42] VITALS: BP 132/78
== END 2020-05-22 21:42 | disposition home or self-care (01) ==
LOC: ED 19:41
DX: S20.211A Contusion of right front wall of thorax, initial encounter (principal); X58.XXXA Exposure to other specified factors, initial encounter; Y93.E9 Activity, other interior property and clothing maintenance; I50.9 Heart failure, unspecified; F17.200 Nicotine dependence, unspecified, uncomplicated
CPT/HCPCS: 71101; 99282; 99283; A9270

== ENCOUNTER 2020-07-17 16:39 | Outpatient (CLI) | payer MEDICAID | END 2020-07-17 16:40 | disposition home or self-care (01) | LOC: COV 16:39 | PROVIDERS: ATTEND Family Medicine | DX: R05 Cough (principal); M79.10 Myalgia, unspecified site; R53.83 Other fatigue; R07.0 Pain in throat; R09.81 Nasal congestion; Z20.828 Contact with and (suspected) exposure to other viral communicable diseases ==

== ENCOUNTER 2020-07-21 16:23 | Emergency (ER) | payer MEDICAID ==
[2020-07-21 16:31] VITALS: BP 129/74
--- NOTE | 2020-07-21 16:48 | ED Physician Documentation ---
PD HPI HEENT - Stated complaint Stated Complaint: COUGH - Chief complaint Chief Complaint: Resp - History obtained from History obtained from: Patient - Additional information Additional information: 54-year-old woman with history of CHF has had about a 3-day history of cough. Is generally dry but she feels like there is mucus in there that does not,. She also had a dry scratchy throat. Her son was recently sick with a recent similar illness. She had Covid testing 2 days ago that was negative per her. No fevers. 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 surgery) - Present Medications Home Medications: Ambulatory Orders Medication Instructions Recorded Confirmed Furosemide 25 mg PO DAILY 12/22/14 01/20/18 Lisinopril [Prinivil] 5 mg PO DAILY 12/22/14 01/20/18 Spironolactone [Aldactone] 25 mg PO DAILY 12/22/14 01/20/18 Metoprolol Succinate 25 mg PO BID 04/08/17 01/20/18 predniSONE [Deltasone] 60 mg PO DAILY 5 Days #15 tablet 07/21/20 - Allergies Allergies/Adverse Reactions: Allergies Allergy/AdvReac Type Severity Reaction Status Date / Time No Known Drug Allergies Allergy Verified 07/21/20 17:05 - Social History Does the pt smoke?: Yes Smoking Status: Current every day smoker Does the pt drink ETOH?: Yes Does the pt have substance abuse?: No - Immunizations Immunizations are current?: No Immunizations: TDAP >10years/unknown - POLST Patient has POLST: No PD ED PE NORMAL - Vitals Vital signs reviewed: Yes - General General: Alert and oriented X 3, No acute distress - HEENT HEENT: PERRL, EOMI, Other (Scratchy laryngitic voice with visualized normal oropharynx) - Neck Neck: Supple, no meningeal sign, No bony TTP - Cardiac Cardiac: RRR, No murmur - Respiratory Respiratory: No respiratory distress, Clear bilaterally - Abdomen Abdomen: Non tender - Derm Derm: Normal color, Warm and dry - Extremities Extremities: No edema, No calf tenderness / cord - Neuro Neuro: Alert and oriented X 3, Normal speech Results - Vitals Vitals: Vital Signs - 24 hr 07/21/ 16:26 Temperature 36.5 C Heart Rate 113 H Respiratory 18 Rate Blood Pressure 129/74 O2 Saturation 100 Oxygen O2 Source Room air PD MEDICAL DECISION MAKING - ED course ED course: 54yo Woman with what sounds like a viral syndrome with laryngitis and cough. Will check x-ray especially given her history. Had Covid testing 2 days ago that was negative. Departure - Departure Disposition: 01 Home, Self Care Clinical Impression: Viral syndrome Condition: Good Record reviewed to determine appropriate education?: Yes Instructions: ED Viral Syndrome Prescriptions: predniSONE [Deltasone] 60 mg PO DAILY 5 Days #15 tablet Comments: return if worse Followup with your doctor next week if not improving.
--- NOTE | 2020-07-21 17:13 | XRAY Report ---
PROCEDURE: Chest 1 View X-Ray INDICATIONS: cough TECHNIQUE: One view of the chest was acquired. COMPARISON: 07/25/2019 and 05/22/2020 FINDINGS: Surgical changes and devices: None. Lungs and pleura: No pleural effusions or pneumothorax. Increased bronchovascular markings in bilate ral hilar region are seen with mild bronchial wall thickening. No focal infiltrate. Mediastinum: Mediastinal contours appear normal. Heart size is normal. Bones and chest wall: No suspicious bony lesions. Overlying soft tissues appear unremarkable. IMPRESSION: Suggestion of mild reactive airway disease suggest bronchitis. No focal infiltrate. Reviewed by: Ranulfo Lui MD on 07/21/2020 5:11 PM PST Approved by: Ranulfo Lui MD on 07/21/2020 5:11 PM PST Station ID: [id number]
[2020-07-21] MEDS ORDERED: predniSONE 20 MG TABLET PO STA (17:20)
== END 2020-07-21 18:05 | disposition home or self-care (01) ==
LOC: ED 16:23
DX: B34.9 Viral infection, unspecified (principal); I50.9 Heart failure, unspecified; F17.200 Nicotine dependence, unspecified, uncomplicated
CPT/HCPCS: 71045; 99283; 99284; J7512

== ENCOUNTER 2021-01-09 08:00 | Outpatient (CLI) | payer MEDICAID ==
--- NOTE | 2021-01-09 10:02 | XRAY Report ---
PROCEDURE: Knee 4 View RT INDICATIONS: PAIN IN RIGHT KNEE TECHNIQUE: 2 AP views of both knees, tunnel view and lateral view of the right knee, and patellar view of the right knee. COMPARISON: None. FINDINGS: Bones: The right knee has no significant degenerative changes. A small enthesophyte at the superior p ole of the patella seen. The left kidney has an osteophyte of the medial tibia. 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 Soft tissues: No joint effusion. No suspicious soft tissue calcifications. IMPRESSION: No acute or significant abnormality of the right knee. Consider MRI if right knee pain continues. Reviewed by: Armand Mittal on 01/09/2021 10:01 AM PDT Approved by: Armand Mittal on 01/09/2021 10:01 AM PDT Station ID: [id number]
== END 2021-01-09 23:59 | disposition home or self-care (01) ==
LOC: DI.N 08:00
PROVIDERS: ATTEND Orthopaedic Surgery
DX: M25.561 Pain in right knee (principal)

== ENCOUNTER 2021-04-23 15:56 | Outpatient (CLI) | payer MEDICAID ==
--- NOTE | 2021-04-24 12:36 | XRAY Report ---
PROCEDURE: Finger(s) RT INDICATIONS: R 3RD DIGIT TRIGGER FINGER TECHNIQUE: AP hand, 3 views of the third finger(s) acquired. COMPARISON: None FINDINGS: Bones: No fractures or dislocations. No suspicious bony lesions. There is subluxation at the third PIP and DIP joint. Soft tissues: No suspicious soft tissue calcifications. IMPRESSION: Third PIP and DIP joint subluxation without visualized fracture. Reviewed by: Kimberly Perez MD on 04/24/2021 12:35 PM PDT Approved by: Kimberly Perez MD on 04/24/2021 12:35 PM PDT Station ID: [id number]
== END 2021-04-23 23:59 | disposition home or self-care (01) ==
LOC: DI.N 15:56
PROVIDERS: ATTEND Physician Assistant
DX: S63.242A Subluxation of distal interphalangeal joint of right middle finger, initial encounter (principal); S63.232A Subluxation of proximal interphalangeal joint of right middle finger, initial encounter

== ENCOUNTER 2021-06-07 09:01 | Outpatient (CLI) | payer MEDICAID ==
[2021-06-07 14:30] LABS: BASOPHILS % (AUTO) 0.5 %; EOSINOPHILS # (AUTO) 0.2 10^3/uL (0.0-0.7); EOSINOPHILS % (AUTO) 3.7 %; HCT - HEMATOCRIT 45.2 % (37.0-47.0); HGB - HEMOGLOBIN 14.3 g/dL (12.0-16.0); LYMPHOCYTES # (AUTO) 1.7 10^3/uL (1.5-3.5); LYMPHOCYTES % (AUTO) 28.1 %; MEAN CORPUSCULAR HEMOGLOBIN 29.1 pg (27.0-31.0); MEAN CORPUSCULAR HGB CONC 31.6 g/dL (32.0-36.0); MEAN CORPUSCULAR VOLUME 91.9 fL (81.0-99.0); MEAN PLATELET VOLUME 9.9 fL (7.9-10.8); MONOCYTES # (AUTO) 0.6 10^3/uL (0.0-1.0); MONOCYTES % (AUTO) 9.3 %; NEUTROPHILS # (AUTO) 3.4 10^3/uL (1.5-6.6); NEUTROPHILS % (AUTO) 58.2 %; PLT - PLATELET COUNT 271 10^3/uL (130-450); RED BLOOD COUNT 4.92 10^6/uL (4.20-5.40); WHITE BLOOD COUNT 5.9 x10^3/uL (4.8-10.8)
[2021-06-07 15:27] LABS: THYROID STIMULATING HORMONE 1.05 uIU/mL (0.34-5.60)
[2021-06-07 15:30] LABS: ALBUMIN 3.5 g/dL (3.2-5.5); ALBUMIN/GLOBULIN RATIO 0.9 (1.0-2.2); ALKALINE PHOSPHATASE 81 IU/L (42-121); ALT ALANINE AMINOTRANSFERASE 25 IU/L (10-60); AST ASPARTATE AMINOTRANSFERASE 27 IU/L (10-42); BILIRUBIN,TOTAL 0.6 mg/dL (0.2-1.0); BUN - BLOOD UREA NITROGEN 18 mg/dL (6-20); CALCIUM 9.1 mg/dL (8.5-10.3); CARBON DIOXIDE - CO2 28 mmol/L (21-32); CHLORIDE 102 mmol/L (101-111); CHOL/HDL RATIO 3.1 (<4.4); CHOLESTEROL 233 mg/dL; CREATININE 0.8 mg/dL (0.4-1.0); GFR - MDRD 74 (>89); GLUCOSE 95 mg/dL (70-100); HDL CHOLESTEROL 74 mg/dL; LDL CHOLESTEROL,CALCULATED 145 mg/dL; POTASSIUM 4.4 mmol/L (3.5-5.0); SODIUM 138 mmol/L (135-145); TOTAL PROTEIN 7.2 g/dL (6.7-8.2); TRIGLYCERIDES 70 mg/dL; VLDL CHOLESTEROL 14 mg/dL
== END 2021-06-07 09:02 | disposition home or self-care (01) ==
LOC: LAB.S 09:01
PROVIDERS: ATTEND Registered Nurse
DX: I11.0 Hypertensive heart disease with heart failure (principal); I50.9 Heart failure, unspecified; Z13.220 Encounter for screening for lipoid disorders; Z13.29 Encounter for screening for other suspected endocrine disorder
CPT/HCPCS: 36415; 80053; 80061; 83721; 84443; 85025

== ENCOUNTER 2021-09-20 08:00 | Outpatient (CLI) | payer MEDICAID ==
--- NOTE | 2021-09-20 20:01 | XRAY Report ---
PROCEDURE: Foot 3 View RT INDICATIONS: NAIL IN RIGHT FOOT/STEPPED ON A NAIL THROUGH SHOE TECHNIQUE: 3 views of the foot were acquired. COMPARISON: None FINDINGS: Bones: No fractures or dislocations. No suspicious bony lesions. Soft tissues: Initial lateral view of right foot shows a nail within plantar soft tissue at the leve l of MTP joints. Subsequent images shows removal of the metallic nail with no radiopaque foreign body seen. No tibiotalar joint effusion. Achilles tendon appears normal. IMPRESSION: Foreign body in plantar aspect of forefoot with subsequent removal. No acute fracture or dislocation. Reviewed by: Ranulfo Lui MD on 09/20/2021 7:59 PM PST Approved by: Ranulfo Lui MD on 09/20/2021 7:59 PM PST Station ID: [id number]
== END 2021-09-20 23:59 | disposition home or self-care (01) ==
LOC: DI.S 08:00
PROVIDERS: ATTEND Physician Assistant Medical
DX: S91.341A Puncture wound with foreign body, right foot, initial encounter (principal)

== ENCOUNTER 2021-10-11 08:00 | Outpatient (CLI) | payer MEDICAID ==
--- NOTE | 2021-10-12 08:21 | XRAY Report ---
PROCEDURE: Chest 2 View X-Ray INDICATIONS: Shortness of breath TECHNIQUE: 2 view(s) of the chest. COMPARISON: 07/21/2020 FINDINGS: Surgical changes and devices: None. Lungs and pleura: No pleural effusions or pneumothorax. Lungs are clear. Mediastinum: Mediastinal contours are normal. Heart size is normal. Bones and chest wall: No suspicious bony abnormalities. Soft tissues appear unremarkable. IMPRESSION: No acute cardiopulmonary process demonstrated radiographically. Reviewed by: Goldy Collins MD on 10/12/2021 8:20 AM [facility] Approved by: Goldy Collins MD on 10/12/2021 8:20 AM [facility] Station ID: [id number]
== END 2021-10-11 23:59 | disposition home or self-care (01) ==
LOC: DI.S 08:00
PROVIDERS: ATTEND Physician Assistant Medical
DX: R06.02 Shortness of breath (principal)

== ENCOUNTER 2022-09-10 09:49 | Outpatient (CLI) | payer MEDICAID ==
[2022-09-10 17:24] LABS: ALBUMIN 3.4 g/dL (3.2-5.5); ALKALINE PHOSPHATASE 69 IU/L (42-121); ALT ALANINE AMINOTRANSFERASE 24 IU/L (10-60); AST ASPARTATE AMINOTRANSFERASE 32 IU/L (10-42); BILIRUBIN,DIRECT 0.1 mg/dL (0.1-0.5); BILIRUBIN,TOTAL 0.8 mg/dL (0.2-1.0); BUN - BLOOD UREA NITROGEN 22 mg/dL (6-20); CALCIUM 9.9 mg/dL (8.5-10.3); CARBON DIOXIDE - CO2 27 mmol/L (21-32); CHLORIDE 105 mmol/L (101-111); CHOL/HDL RATIO 3.6 (<4.4); CHOLESTEROL 220 mg/dL; CREATININE 0.8 mg/dL (0.4-1.0); GFR - MDRD 74 (>89); GLUCOSE 95 mg/dL (70-100); HDL CHOLESTEROL 61 mg/dL; LDL CHOLESTEROL,CALCULATED 143 mg/dL; LDL CHOLESTEROL,DIRECT 145 mg/dL; LDL/HDL RATIO 2.3 (<4.4); POTASSIUM 4.3 mmol/L (3.5-5.0); SODIUM 144 mmol/L (135-145); TOTAL PROTEIN 7.3 g/dL (6.7-8.2); TRIGLYCERIDES 81 mg/dL; VLDL CHOLESTEROL 16 mg/dL
== END 2022-09-10 09:50 | disposition home or self-care (01) ==
LOC: LAB.S 09:49
PROVIDERS: ATTEND Physician Assistant
DX: I42.9 Cardiomyopathy, unspecified (principal); I50.22 Chronic systolic (congestive) heart failure
CPT/HCPCS: 36415; 80048; 80061; 80076; 83721

== ENCOUNTER 2022-11-20 10:41 | Outpatient (CLI) | payer MEDICAID ==
[2022-11-20 15:04] LABS: CALCIUM 8.9 mg/dL (8.5-10.3); CREATININE 0.9 mg/dL (0.4-1.0); POTASSIUM 4.3 mmol/L (3.5-5.0)
== END 2022-11-20 10:42 | disposition home or self-care (01) ==
LOC: LAB.S 10:41
PROVIDERS: ATTEND Physician Assistant
DX: I42.9 Cardiomyopathy, unspecified (principal); I50.22 Chronic systolic (congestive) heart failure
CPT/HCPCS: 36415; 80048; 83880

== ENCOUNTER 2023-05-06 18:23 | Outpatient (CLI) | payer MEDICAID ==
--- NOTE | 2023-05-07 08:03 | XRAY Report ---
PROCEDURE: Wrist 3 View RT INDICATIONS: PAIN IN RIGHT WRIST TECHNIQUE: 3 views of the wrist were acquired. COMPARISON: None. FINDINGS: Bones: No fractures or dislocations. Normal alignment. 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 No suspicious bony lesions. Soft tissues: No suspicious soft tissue calcifications or masses. No soft tissue swelling or radiopa que foreign body. IMPRESSION: 1. No acute bony abnormality. If there is point tenderness of the scaphoid, consider repeat radiograp h in 7-10 days. 2. 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 Reviewed by: Maryam De Jesus MD on 05/07/2023 8:02 AM PDT Approved by: Maryam De Jesus MD on 05/07/2023 8:02 AM PDT Station ID: [id number]
== END 2023-05-06 23:59 | disposition home or self-care (01) ==
LOC: DI.S 18:23
PROVIDERS: ATTEND Emergency Medicine
DX: M19.031 Primary osteoarthritis, right wrist (principal)

== ENCOUNTER 2023-07-21 11:13 | Emergency (ER) | payer MEDICAID ==
[2023-07-21 11:25] VITALS: BP 141/78; O2SAT 100
--- NOTE | 2023-07-21 11:53 | XRAY Report ---
PROCEDURE: Chest 1 View X-Ray INDICATIONS: Chest pain TECHNIQUE: One view of the chest was acquired. COMPARISON: Chest x-ray 10/11/2021. FINDINGS: Surgical changes and devices: None. Lungs and pleura: No pleural effusions or pneumothorax. Lungs are clear. Mediastinum: Mediastinal contours appear normal. Heart size is normal. Bones and chest wall: No suspicious bony lesions. Overlying soft tissues appear unremarkable. IMPRESSION: No acute cardiopulmonary process. Reviewed by: Eduar Funez MD on 07/21/2023 11:52 AM PST Approved by: Eduar Funez MD on 07/21/2023 11:52 AM PST Station ID: [id number]
[2023-07-21 12:28] LABS: BASOPHILS % (AUTO) 0.3 %; EOSINOPHILS # (AUTO) 0.3 10^3/uL (0.0-0.7); EOSINOPHILS % (AUTO) 4.2 %; HCT - HEMATOCRIT 44.6 % (37.0-47.0); HGB - HEMOGLOBIN 14.7 g/dL (12.0-16.0); LYMPHOCYTES # (AUTO) 1.9 10^3/uL (1.5-3.5); LYMPHOCYTES % (AUTO) 26.5 %; MEAN CORPUSCULAR HEMOGLOBIN 29.1 pg (27.0-31.0); MEAN CORPUSCULAR VOLUME 88.3 fL (81.0-99.0); MEAN PLATELET VOLUME 9.4 fL (7.9-10.8); MONOCYTES # (AUTO) 0.6 10^3/uL (0.0-1.0); NEUTROPHILS # (AUTO) 4.2 10^3/uL (1.5-6.6); NEUTROPHILS % (AUTO) 59.6 %; PLT - PLATELET COUNT 262 10^3/uL (130-450); RED BLOOD COUNT 5.05 10^6/uL (4.20-5.40); RED CELL DISTRIBUTION WIDTH 14.1 % (12.0-15.0); WHITE BLOOD COUNT 7.1 x10^3/uL (4.8-10.8)
[2023-07-21 12:46] LABS: ALBUMIN 3.7 g/dL (3.2-5.5); ALBUMIN/GLOBULIN RATIO 1.1 (1.0-2.2); BILIRUBIN,TOTAL 0.3 mg/dL (0.2-1.0); CALCIUM 9.3 mg/dL (8.5-10.3); CREATININE 0.8 mg/dL (0.6-1.3); POTASSIUM 4.4 mmol/L (3.5-4.5); TOTAL PROTEIN 7.2 g/dL (6.4-8.9)
[2023-07-21 12:51] LABS: TROPONIN I HIGH SENSITIVITY 6.9 ng/L (2.3-14.8)
== END 2023-07-21 14:33 | disposition left against medical advice (07) ==
LOC: ED 11:13
DX: Z53.21 Procedure and treatment not carried out due to patient leaving prior to being seen by health care provider (principal)
CPT/HCPCS: 36415; 80053; 83690; 84484; 85025; 93005

== ENCOUNTER 2023-11-03 08:52 | Outpatient (CLI) | payer MEDICAID ==
--- NOTE | 2023-11-03 09:39 | Ultrasound Report ---
PROCEDURE: Abdomen Complete INDICATIONS: ABD BLOATING TECHNIQUE: Real-time scanning was performed of the abdominal and retroperitoneal organs, with image documentatio n. COMPARISON: CT abdomen and pelvis on December 11, 2017. FINDINGS: Liver: Liver is normal in size and homogeneous in echotexture. The parenchyma is diffusely echogeni c. The previously seen subcentimeter hypodensity in the left hepatic lobe on prior CT dated December 11 018 is not well seen on the current ultrasound. Gallbladder: Mobile gallstone measuring 2.3 cm as seen on CT dated December 11, 2017. Normal wall thicknes s measuring 1.5 mm. No pericholecystic fluid. Biliary ducts: Intrahepatic bile ducts are non-dilated. Extrahepatic bile duct caliber measures 3.7 mm. Normal is 6-7 mm or less in diameter, or 10 mm or less post-cholecystectomy. Pancreas: Visualized portions of the pancreas are sonographically normal. Spleen: Spleen is normal in size and homogeneous in echotexture. Kidneys: Kidneys are normal in size and echotexture. Right kidney measures 10.5 cm long; left kidne y measures 9.3 cm long. No hydronephrosis or nephrolithiasis. No solid masses. No complex renal cys tic lesions which require follow-up. Aorta: Visualized aorta is normal in caliber at less than 3 cm. Iliacs: Proximal common iliac arteries are normal in caliber at less than 2.5 cm. IVC: Intrahepatic inferior vena cava is patent. Miscellaneous: No free abdominal fluid. IMPRESSION: 1.Liver is diffusely echogenic which may be seen in the setting of parenchymal disease such as steato sis. 2.Cholelithiasis without acute cholecystitis. Reviewed by: Maryam De Jesus MD on 11/03/2023 9:37 AM PDT Approved by: Maryam De Jesus MD on 11/03/2023 9:37 AM PDT Station ID: [id number]
== END 2023-11-03 08:53 | disposition home or self-care (01) ==
LOC: DI 08:52
PROVIDERS: ATTEND Registered Nurse
DX: R14.0 Abdominal distension (gaseous) (principal)

== ENCOUNTER 2023-11-13 07:23 | Outpatient (CLI) | payer MEDICAID ==
[2023-11-13 14:36] LABS: BASOPHILS % (AUTO) 0.5 %; EOSINOPHILS # (AUTO) 0.3 10^3/uL (0.0-0.7); EOSINOPHILS % (AUTO) 4.7 %; HCT - HEMATOCRIT 44.3 % (37.0-47.0); HGB - HEMOGLOBIN 14.1 g/dL (12.0-16.0); LYMPHOCYTES % (AUTO) 34.3 %; MEAN CORPUSCULAR HEMOGLOBIN 29.4 pg (27.0-31.0); MEAN CORPUSCULAR HGB CONC 31.8 g/dL (32.0-36.0); MEAN CORPUSCULAR VOLUME 92.3 fL (81.0-99.0); MEAN PLATELET VOLUME 10.1 fL (7.9-10.8); MONOCYTES # (AUTO) 0.7 10^3/uL (0.0-1.0); MONOCYTES % (AUTO) 11.4 %; NEUTROPHILS # (AUTO) 2.8 10^3/uL (1.5-6.6); NEUTROPHILS % (AUTO) 48.7 %; PLT - PLATELET COUNT 252 10^3/uL (130-450); WHITE BLOOD COUNT 5.7 x10^3/uL (4.8-10.8)
[2023-11-13 15:16] LABS: ALBUMIN 3.6 g/dL (3.2-5.5); ALKALINE PHOSPHATASE 86 IU/L (42-121); ALT ALANINE AMINOTRANSFERASE 38 IU/L (10-60); AST ASPARTATE AMINOTRANSFERASE 36 IU/L (10-42); BILIRUBIN,TOTAL 0.5 mg/dL (0.2-1.0); BUN - BLOOD UREA NITROGEN 21 mg/dL (6-20); CALCIUM 9.4 mg/dL (8.5-10.3); CARBON DIOXIDE - CO2 27 mmol/L (21-32); CHLORIDE 106 mmol/L (101-111); CHOL/HDL RATIO 3.7 (<4.4); CHOLESTEROL 223 mg/dL; CREATININE 0.9 mg/dL (0.6-1.3); GFR - MDRD 64 (>89); GLUCOSE 108 mg/dL (74-104); HDL CHOLESTEROL 61 mg/dL; LDL CHOLESTEROL,CALCULATED 139 mg/dL; LDL/HDL RATIO 2.3 (<4.4); SODIUM 137 mmol/L (135-145); TOTAL PROTEIN 7.1 g/dL (6.4-8.9); TRIGLYCERIDES 113 mg/dL (48-352); VLDL CHOLESTEROL 23 mg/dL
== END 2023-11-13 07:24 | disposition home or self-care (01) ==
LOC: LAB.S 07:23
PROVIDERS: ATTEND Registered Nurse
DX: Z13.228 Encounter for screening for other metabolic disorders (principal); Z13.220 Encounter for screening for lipoid disorders; Z13.29 Encounter for screening for other suspected endocrine disorder; Z13.0 Encounter for screening for diseases of the blood and blood-forming organs and certain disorders involving the immune mechanism
CPT/HCPCS: 36415; 80053; 80061; 83721; 84443; 85025

== ENCOUNTER 2024-02-10 13:42 | Outpatient (CLI) | payer MEDICAID ==
--- NOTE | 2024-02-10 13:19 | SLEEP CARE CONSULTATION ---
Information from patient questionnaire entered by Grecia Kelly. I have reviewed and concur with the information entered by Grecia Kelly. This document represents the service I personally performed and the decisions made by me, Marguerite Roberts ARNP. History of Present Illness Service Date and Time: 02/10/2024 1300 Reason for follow up: annual (LAST SEEN 07/2022 NEED STUDY) Prior sleep studies: No HPI additional information: I had the pleasure of seeing AYDEN DAVILA today via video appointment regarding the possibility of her having a sleep disorder. She was last seen in our office in July 2022 and PSG was ordered. Her current complaints are unrefreshed sleep, excessive daytime sleepiness, and morning headaches. 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 The patient tells me that she normally goes to bed around 11 pm, and it takes her approximately few minutes to fall asleep. She has been told that she snores loudly and irregularly at night. She has not been observed to stop breathing in her sleep. Her bed partner can still sleep in the same bed. She can recall waking up on the average of 1-2 times during the night. Most of the time she wakes up because of unknown reasons or noises. She has not awakened for her own snoring, choking, and having to gasp for air. There is a lot of tossing and turning in her sleep. Generally she can recall having dreams. She usually wakes up at 0800 and does not feel refreshed. She usually does have a morning headache. During the day she complains of feeling sleepy and fatigued. She has fallen asleep while driving and has gone out of the caryn, no accident. She usually naps for about 15-20 minutes during the day after work. If she naps, upon falling asleep during the day she denies having vivid dreams. She denies having impaired concentration during the day. There is some somniloquy (sleep talking) but no somnambulism (sleep walking). Sleep Study - Results Prior sleep studies: No Subjective Initial [place] Sleepiness Scale score: 20 (07/18/22) Current [place] Sleepiness Scale score: 18 Allergies and Home Medications Known drug allergies: No Drug allergies reviewed: Yes Home medication list reviewed: Yes (no changes) Allergy and home medication list: Allergies No Known Drug Allergies Allergy (Verified 02/06/24 10:58) Review of Systems Review of systems same as previous: Yes (no changes) Physical Exam Vital signs obtained and entered by: MARGUERITE CISNEROS Height: 5 ft 6 in Weight: 175 lb (per pt) Body Mass Index: 28.2 BMI Classification: Overweight Impression and Plan 1. Suspected Obstructive Sleep Apnea-Hypopnea Syndrome, as suggested by a history of observed cessation of breath while asleep, morning headache, unrefreshed sleep, and excessive daytime sleepiness. She was last seen in the office in July 2022 and a PSG was ordered but never accomplished. She returns to the office today to complete evaluation. I recommend proceeding to polysomnography to confirm the diagnosis and to assess severity. If the patient has significant sleep disordered breathing, a manual CPAP titration study will also be performed to find the optimal treatment pressure. I informed the patient of what the sleep studies involve and after some discussion, obtained agreement to proceed. The pathophysiology of obstructive sleep apnea-hypopnea syndrome was discussed with the patient and health risks of cardiovascular and cerebrovascular disease if not treated. 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 Patient agreed to plan. * Schedule polysomnography * Avoid long distance driving or driving when feeling sleepy. * Avoid alcohol, sedative and muscle relaxant around bedtime. * Attempt to lose weight. * Review instructions provided by trained office staff on how to prepare for the sleep study. * Return for follow-up after sleep study completed. Counseling Topics: Weight loss health impact Visit Type: Telehealth Video Video Type: Sarah Patient Location: Work Location of Provider: Office Patient agrees and consents to this telehealth visit type: Yes Patient agrees to have their insurance billed: Yes Time Spent with Patient (minutes): 21 Provider Statement: I spent 100% of the Telehealth Video Call with the patient with greater than 50% spent counseling the patient and coordination of care.
== END 2024-02-10 13:43 | disposition home or self-care (01) ==
LOC: SC 13:42
PROVIDERS: ATTEND Nurse Practitioner Family
DX: G47.10 Hypersomnia, unspecified (principal); G47.8 Other sleep disorders; R51.9 Headache, unspecified; R06.83 Snoring; E66.3 Overweight; Z68.28 Body mass index [BMI] 28.0-28.9, adult

== ENCOUNTER 2024-02-25 10:13 | Outpatient (CLI) | payer MEDICAID ==
--- NOTE | 2024-02-25 22:15 | XRAY Report ---
PROCEDURE: Abdomen 2 V INDICATIONS: ABDOMINAL BLOATING TECHNIQUE: 2 views of the abdomen were acquired. COMPARISON: Ultrasound abdomen 11/03/2023 FINDINGS: Surgical changes and devices: None. Bowel: No pneumoperitoneum. The bowel gas pattern is normal. Stool load within normal limits. Soft tissues: No masses; visualized solid organ contours appear normal in size. No suspicious abdom inal calcifications. Bones: No suspicious bony abnormalities. IMPRESSION: No acute abdominal pathology. Reviewed by: Kimberly Perez MD on 02/25/2024 10:14 PM PDT Approved by: Kimberly Perez MD on 02/25/2024 10:14 PM PDT Station ID: [id number]
== END 2024-02-25 10:14 | disposition home or self-care (01) ==
LOC: DI.S 10:13
PROVIDERS: ATTEND Registered Nurse
DX: R14.0 Abdominal distension (gaseous) (principal)

== ENCOUNTER 2024-03-04 20:33 | Outpatient (CLI) | payer MEDICAID | END 2024-03-04 20:34 | disposition home or self-care (01) | LOC: SC 20:33 | PROVIDERS: ATTEND Nurse Practitioner Family | DX: G47.33 Obstructive sleep apnea (adult) (pediatric) (principal); G47.61 Periodic limb movement disorder; E66.3 Overweight; Z68.28 Body mass index [BMI] 28.0-28.9, adult; I51.9 Heart disease, unspecified | CPT/HCPCS: 95810 ==

== ENCOUNTER 2024-03-17 12:20 | Outpatient (CLI) | payer MEDICAID ==
[2024-03-17 12:53] LABS: AMYLASE 45 U/L (28-100); LIPASE 35 U/L (11-82)
== END 2024-03-17 12:21 | disposition home or self-care (01) ==
LOC: LAB 12:20
PROVIDERS: ATTEND Registered Nurse
DX: R10.13 Epigastric pain (principal); R14.0 Abdominal distension (gaseous)
CPT/HCPCS: 36415; 82150; 83690

== ENCOUNTER 2024-04-15 09:54 | Outpatient (CLI) | payer MEDICAID ==
[2024-04-15] MEDS ORDERED: DIATRIZOATE MEGLU/DIATRIZO SOD 30 ML BOTTLE PO ONE (09:59)
[2024-04-15] MEDS ORDERED: iohexoL-300 100 ML VIAL ONE (09:59)
[2024-04-15 10:23] LABS: CREATININE 0.8 mg/dL (0.6-1.3)
--- NOTE | 2024-04-15 14:30 | CT Report ---
PROCEDURE: Abdomen/Pelvis W INDICATIONS: ABD BLOATING CONTRAST: Omni 300 100ml TECHNIQUE: After the administration of intravenous contrast, a CT scan of the abdomen and pelvis was performed. Images were recorded and evaluated at appropriate window settings. Reformats: coronal and sagittal. F or radiation dose reduction, the following was used: automated exposure control, adjustment of mA and /or kV according to patient size. COMPARISON: CT of the abdomen and pelvis with contrast from 12/11/2017 FINDINGS: Image quality: Diagnostic. Lower chest: Unremarkable. Calcified granuloma anterior left lower lobe. Liver: Subcentimeter hypodense lesion within segment 2 of the liver (series 2, image 20) likely cyst versus hemangioma and stable from prior study.. No solid mass lesion. Gallbladder: Partially calcified gallstone within gallbladder lumen. No gallbladder wall thickening o r pericholecystic fluid. Biliary tree: No intrahepatic or extrahepatic dilation, accounting for age. Spleen: No splenomegaly. Pancreas: No focal pancreatic lesion. No pancreatic duct dilatation or inflammatory changes. Adrenals: 1 cm nodule within the left adrenal gland too small to fully characterize and most likely a denoma. Tiny nodule within the right adrenal gland. Kidneys and ureters: No hydronephrosis. No renal cystic lesion which requires follow up. No solid mas s. Stomach, bowel and peritoneum: Small large bowel appear normal in caliber without evidence of bowel o bstruction. Normal-appearing appendix. No abdominal or pelvic fluid collections to suggest abscess. No evidence of pneumoperitoneum. No lovely toneal nodules or masses. Lymph nodes: No central or retroperitoneal adenopathy. Vessels: No infrarenal aortic aneurysm. Patent portal vein. PELVIS Reproductive organs: Unremarkable. Bladder: No abnormal wall thickening, accounting for underdistention. Pelvic lymph nodes: No pelvic adenopathy by size criteria. Bones: No aggressive osseous abnormality. Other: No significant ventral or inguinal hernia. IMPRESSION: No acute abnormality within the abdomen or pelvis. Reviewed by: Jasper Barnes MD on 04/15/2024 2:29 PM PDT Approved by: Jasper Barnes MD on 04/15/2024 2:29 PM PDT Station ID: [id number]
[2024-04-15] MEDS: DIATRIZOATE MEGLU/DIATRIZO SOD 30 ML BOTTLE PO ONE (15:56)
[2024-04-15] MEDS: iohexoL-300 100 ML VIAL IVP ONE (15:56)
== END 2024-04-15 09:55 | disposition home or self-care (01) ==
LOC: LAB 09:54
PROVIDERS: ATTEND Registered Nurse
DX: R10.13 Epigastric pain (principal); R14.0 Abdominal distension (gaseous)
CPT/HCPCS: 36415; 74177; 82565; Q9963; Q9967